=== PATIENT | male | born 1995 | race Caucasian/White ===

== ENCOUNTER 2017-06-21 00:03 | Emergency (ER) | payer OTHER ==
[~2017-06-21 00:03] MED LIST: CLIN75S PO; TYLCOD5S PO; Z.0.NO CURRENT MEDS
[2017-06-21 00:07] VITALS: BP 127/83; PULSE 76; RESP 16; TEMP 98; O2SAT 99
--- NOTE | 2017-06-21 01:13 | PD ---
HPI Chief Complaint: Complaint Time Seen by Provider: 00:42 Travel History International Travel<30 days: No Contact w/Intl Traveler<30days: No Traveled to known affect area: No History of Present Illness HPI The patient is a 22 year old male who presents to the [facility] emergency department with a history of right-sided inner thigh pain that he reports began this morning. He reports that the pain is coming and going. He reports that it is worse with walking. He reports that it became more noticeable when he was up at work at 4 PM. He denies having any associated rashes or swelling to the area. He denies having any testicle pain or swelling. He denies having any penile discharge, dysuria, hematuria, urinary urgency, or frequency. The patient incidentally also reports on review of systems that he fell intermittent muscle twitching over the last few days. He denies being on any new supplements. He does report that over the last 3 days he has been taking an [id number] allergy medicine. He is unsure the name or whether it has a decongestant and it. On review of systems, the patient denies any recent fevers, cough, congestion, neck pain, chest pain, shortness of breath, abdominal pain, vomiting, diarrhea, or neurologic symptoms. PFSH Past Medical History Narrative Medical The patient's past medical history is reportedly none. Diminished Hearing: No Immunizations Current: Yes Past Surgical History Narrative Surgical The patient's past surgical history is reportedly none. Social History Alcohol Use: No Tobacco Use: No Substance Use: No Allergies-Medications (Allergen,Severity, Reaction): Coded Allergies: No Known Allergies (Verified , 06/21/17) Reported Meds & Prescriptions Reported Meds & Active Scripts Active EC-Naprosyn (Naproxen) 500 Mg Tabdr 500 Mg PO BID PRN Reported No Current Meds (Miscellaneous Medication) Misc Review of Systems Except as stated in HPI: all other systems reviewed are Neg General / Constitutional: No: Fever Eyes: No: Visual changes HENT: No: Headaches Cardiovascular: No: Chest Pain or Discomfort Respiratory: No: Shortness of Breath Gastrointestinal: No: Abdominal Pain Genitourinary: No: Dysuria Musculoskeletal: Positive: Myalgias, Pain, Other (muscle twitching) Skin: No Rash Neurologic: No: Weakness Psychiatric: No: Depression Endocrine: No: Polydipsia Hematologic/Lymphatic: No: Easy Bruising Physical Exam Narrative General: The patient is a well-developed well-nourished male in no acute distress. Head and Neck exam: Head is normocephalic atraumatic. Eyes: EOMI, pupils are equal round and reactive to light. Nose: Midline septum with pink mucous membranes Mouth: Dentition unremarkable. Moist mucus membranes. Posterior oropharynx is not erythematous. No tonsillar hypertrophy. Uvula midline. Airway patent. Neck: No palpable lymphadenopathy. No nuchal rigidity. No thyromegaly. Cardiovascular: Regular rate and rhythm without murmurs, gallops, or rubs. Lungs: Clear to auscultation bilaterally. No wheezes, rhonchi, or rales. Abdomen: Soft, without tenderness to palpation in all 4 quadrants of the abdomen. No guarding, rebound, or rigidity. Normal bowel sounds are audible. No tenderness on palpation of McBurney's point. Negative Halstead sign. Extremities: No clubbing, cyanosis, or edema. 2+ pulses in all 4 extremities. No calf tenderness on palpation. The patient reports that the area of pain is in the right inner thigh. There the patient has no visible abnormality. Patient has no pain on palpation currently. Back: No costovertebral angle tenderness to palpation. Neurologic Exam: Grossly nonfocal. Skin Exam: No rash noted. Intact skin that is warm and dry. Data Data Last Documented VS Vital Signs Date Time Temp Pulse Resp B/P Pulse Ox O2 Delivery O2 Flow Rate FiO2 06/21/17 02:05 66 16 121/71 98 Room Air 06/21/17 00:07 98.0 Orders Urinalysis - C+S If Indicated (06/21/17 00:48) Gc And Chlamydia Pcr (06/21/17 00:48) Complete Blood Count With Diff (06/21/17 00:56) Comprehensive Metabolic Panel (06/21/17 00:56) Creatine Kinase (Cpk) (06/21/17 00:56) Westergren Sedimentation Rate (06/21/17 00:56) Magnesium (Mg) (06/21/17 00:56) Thyroid Stimulating Hormone (06/21/17 00:56) Iv Access Insert/Monitor (06/21/17 00:56) Ecg Monitoring (06/21/17 00:56) Oximetry (06/21/17 00:56) Ketorolac Inj (Toradol Inj) (06/21/17 01:45) Labs Laboratory Tests Test 06/21/17 06/21/17 01:10 01:25 Urine Color YELLOW Urine Turbidity CLEAR Urine pH 6.0 Urine Specific [place] 1.027 Urine Protein TRACE mg/dL Urine Glucose (UA) NEG mg/dL Urine Ketones NEG mg/dL Urine Occult Blood NEG Urine Nitrite NEG Urine Bilirubin NEG Urine Urobilinogen 2.0 MG/DL Urine Leukocyte Esterase NEG Urine RBC 2 /hpf Urine WBC 1 /hpf Urine Mucus FEW /lpf Microscopic Urinalysis Comment CULT NOT INDICATED Chlamydia trachomatis DNA NOT DETECTED (PCR) Neisseria gonorrhoeae DNA NOT DETECTED (PCR) White Blood Count 6.1 TH/MM3 Red Blood Count 4.39 MIL/MM3 Hemoglobin 13.2 GM/DL Hematocrit 38.3 % Mean Corpuscular Volume 87.3 FL Mean Corpuscular Hemoglobin 30.2 PG Mean Corpuscular Hemoglobin 34.5 % Concent Red Cell Distribution Width 13.5 % Platelet Count 295 TH/MM3 Mean Platelet Volume 8.0 FL Neutrophils (%) (Auto) 52.5 % Lymphocytes (%) (Auto) 32.3 % Monocytes (%) (Auto) 12.0 % Eosinophils (%) (Auto) 2.5 % Basophils (%) (Auto) 0.7 % Neutrophils # (Auto) 3.2 TH/MM3 Lymphocytes # (Auto) 2.0 TH/MM3 Monocytes # (Auto) 0.7 TH/MM3 Eosinophils # (Auto) 0.2 TH/MM3 Basophils # (Auto) 0.0 TH/MM3 CBC Comment DIFF FINAL Differential Comment Erythrocyte Sedimentation Rate 2 mm/hr Sodium Level 143 MEQ/L Potassium Level 3.9 MEQ/L Chloride Level 107 MEQ/L Carbon Dioxide Level 30.8 MEQ/L Anion Gap 5 MEQ/L Blood Urea Nitrogen 14 MG/DL Creatinine 1.13 MG/DL Estimat Glomerular Filtration 80 ML/MIN Rate Random Glucose 94 MG/DL Calcium Level 8.8 MG/DL Magnesium Level 2.1 MG/DL Total Bilirubin 1.3 MG/DL Aspartate Amino Transf 16 U/L (AST/SGOT) Alanine Aminotransferase 24 U/L (ALT/SGPT) Alkaline Phosphatase 52 U/L Total Creatine Kinase 106 U/L Total Protein 7.5 GM/DL Albumin 4.1 GM/DL Thyroid Stimulating Hormone 2.330 uIU/ML 3rd Gen [facility] Medical Decision Making Medical Screen Exam Complete: Yes Emergency Medical Condition: Yes Medical Record Reviewed: Yes Differential Diagnosis Electrolyte derangements, versus rhabdomyolysis, versus medication side effect, versus hernia, versus musculoskeletal strain, versus shingles Narrative Course During the course of the patients emergency department visit, the patients history, examination, and differential diagnosis were reviewed with the patient. The patient had IV access obtained and blood work sent for analysis. The patient was placed on a cotton sampler with oximetry and blood pressure monitoring. The patient was initially provided Toradol 15 mg IV. The patients laboratory studies were reviewed and remarkable for a white count of 6.1, hemoglobin 13.2, platelets 295 with 12 monocytes, sedimentation rate is 2 decrease in all likelihood of autoimmune process, CMP is remarkable for a GFR of 80, total bilirubin 1.3, TSH 2.33, urinalysis is unremarkable. Chlamydia and gonorrhea were not detected in his urinalysis. The patient will be discharged home with an anti-inflammatory pain medicine and close follow-up with his primary care physician for improvement. The patient is resting comfortably and feels better, is alert and in no distress. The patients results and examination findings were discussed with the patient. The repeat examination is unremarkable and benign. The history, exam, diagnostic testing, and current condition do not suggest any significant pathology to warrant further testing, continued ED treatment, admission, or surgical evaluation at this point. The vital signs have been stable. The patient does not have uncontrollable pain, intractable vomiting, or other significant symptoms. The patient's condition is stable and appropriate for discharge. The patient will pursue further outpatient evaluation with a primary care physician or other designated or consulting physician as indicated in the discharge instructions. The patient expressed understanding and was agreeable with this plan. Diagnosis Primary Impression: Thigh pain Qualified Code: M79.651 - Pain of right thigh Referrals: Primary Care Physician 1 week Patient Instructions: General Instructions, Leg Pain (ED) Med/Other Pt SpecificInfo: Prescription(s) given Scripts Naproxen DR (EC-Naprosyn)500 Mg [id number] Mg PO BID PRN (PAIN GREATER THAN 5) # 10 TAB Ref 0 Prov:Sena Samayoa MD 06/21/17 Disposition: 01 DISCHARGE HOME Condition: Stable Sena Samayoa MD Jun 21, 2017 01:13
[2017-06-21 01:30] LABS: BLOOD, URINE NEG (NEG); COMMENT (UR) CULT NOT INDICATED; CULTURE IF INDICATED CULT NOT INDICATED; GLUCOSE,URINE NEG (NEG); KETONE, URINE NEG (NEG); MUCUS URINE FEW /lpf (OCC); NITRITE,URINE NEG (NEG); URINE COLOR YELLOW (YELLW/STRAW)
[2017-06-21] MEDS ORDERED: KETOROLAC TROMETHAMINE 30 MG/ML (IVP) VIAL IV PUSH ONE (01:45)
[2017-06-21 01:52] LABS: AUTOMATED NEUTROPHIL # 3.2 TH/MM3 (1.8-7.7); BASOPHIL % 0.7 % (0.0-2.0); EOSINOPHIL # 0.2 TH/MM3 (0-0.4); EOSINOPHIL % 2.5 % (0.0-4.0); HEMATOCRIT 38.3 % (39.0-51.0); HEMO FLAGS DIFF FINAL; LYMPH % 32.3 % (9.0-44.0); MEAN CELL VOLUME 87.3 FL (80.0-100.0); MEAN CORPUSCULAR HEMOGLOBIN 30.2 PG (27.0-34.0); MEAN CORPUSCULAR HGB CONC 34.5 % (32.0-36.0); NEUT % 52.5 % (16.0-70.0); PLATELET COUNT 295 TH/MM3 (150-450); RED BLOOD COUNT 4.39 MIL/MM3 (4.50-5.90); RED CELL DISTRIBUTION WIDTH 13.5 % (11.6-17.2); WHITE BLOOD COUNT 6.1 TH/MM3 (4.0-11.0)
[2017-06-21 02:03] VITALS: RESP 20; O2SAT 100
[2017-06-21 02:05] VITALS: BP 121/71; PULSE 66; RESP 16; O2SAT 98
[2017-06-21 02:21] LABS: ALT (GPT) 24 U/L (12-78); ANION GAP 5 MEQ/L (5-15); AST (GOT) 16 U/L (15-37); BICARBONATE 30.8 MEQ/L (21.0-32.0); BLOOD UREA NITROGEN 14 MG/DL (7-18); CHLORIDE 107 MEQ/L (98-107); GLOMERULAR FILTRATION RATE 80 ML/MIN (>89); MAGNESIUM 2.1 MG/DL (1.5-2.5); POTASSIUM 3.9 MEQ/L (3.5-5.1); SODIUM (NA) 143 MEQ/L (136-145)
[2017-06-21 02:40] LABS: ALKALINE PHOSPHATASE 52 U/L (45-117); CREATINE KINASE 106 U/L (39-308); TOTAL BILIRUBIN ADULT 1.3 MG/DL (0.2-1.0)
[2017-06-21 03:06] LABS: CHLAMYDIA PCR NOT DETECTED (NOT DETECT); NEISSERIA PCR NOT DETECTED (NOT DETECT)
[2017-06-21] MEDS ORDERED: EC-N500T PO (03:23)
== END 2017-06-21 03:35 | disposition home or self-care (01) ==
LOC: NEPC 00:03
DX: M79.651 Pain in right thigh (principal)
CPT/HCPCS: 80053; 81001; 82550; 83735; 84443; 85025; 85652; 87491; 87591; 96374; 99284; J1885

== ENCOUNTER 2017-12-07 17:42 | Emergency (ER) | payer OTHER ==
[~2017-12-07] VITALS: Ht 170.2 cm; Wt 70.0 kg
[~2017-12-07 17:42] MED LIST changes: -CLIN75S PO; +NAPR-810 PO; -TYLCOD5S PO
[2017-12-07 17:47] VITALS: BP 139/77; PULSE 87; RESP 16; TEMP 98.6; O2SAT 96
--- NOTE | 2017-12-07 18:48 | PD ---
HPI Chief Complaint: Cold / Flu Symptoms Time Seen by Provider: 18:43 Travel History International Travel<30 days: No Contact w/Intl Traveler<30days: No Traveled to known affect area: No History of Present Illness HPI 22-year-old male presents for evaluation. For 3 days he's had chills, sore throat and cough. Cough is productive with yellow sputum production. Denies sick contacts. Denies any abdominal pain, nausea or vomiting, rash or recent travel. He has no other complaints at this time. [facility] Past Medical History Medical History: Denies Significant Hx Diminished Hearing: No Immunizations Current: Yes (STATES HAD IMMUNIZATIONS IN THE ) Tetanus Vaccination: < 5 Years Influenza Vaccination: No Past Surgical History Surgical History: No Previous Surgery Social History Alcohol Use: No Tobacco Use: No Substance Use: No Allergies-Medications (Allergen,Severity, Reaction): Coded Allergies: No Known Allergies (Verified Adverse Reaction, Unknown, 12/07/17) Reported Meds & Prescriptions Reported Meds & Active Scripts Active No Active Prescriptions or Reported Medications Review of Systems General / Constitutional: Positive: Chills HENT: Positive: Sore Throat, Rhinorrhea Cardiovascular: Positive: Chest Pain or Discomfort Respiratory: Positive: Cough Gastrointestinal: No: Nausea, Vomiting, Abdominal Pain Physical Exam Narrative GENERAL: Well-nourished male in no acute distress SKIN: Warm and dry. HEAD: Atraumatic. Normocephalic. EYES: Pupils equal and round. No scleral icterus. No injection or drainage. ENT: No nasal bleeding or discharge. Mucous membranes pink and moist. Mild oropharyngeal erythema without exudate. NECK: Trachea midline. No JVD. No lymphadenopathy CARDIOVASCULAR: Regular rate and rhythm. No murmur appreciated. RESPIRATORY: No accessory muscle use. Clear to auscultation. Breath sounds equal bilaterally. No crackles no wheezing or rhonchi GASTROINTESTINAL: Abdomen soft, non-tender, nondistended. Hepatic and splenic margins not palpable. Data Data Last Documented VS Vital Signs Date Time Temp Pulse Resp B/P (MAP) Pulse Ox O2 Delivery O2 Flow Rate FiO2 12/07/17 17:47 98.6 87 16 139/77 (97) 96 Orders Orders Group A Rapid Strep Screen (12/07/17 18:46) Influenzae A/B Antigen (12/07/17 18:46) Strep Culture (Group A) (12/07/17 19:00) MDM Medical Decision Making Medical Screen Exam Complete: Yes Emergency Medical Condition: Yes Medical Record Reviewed: Yes Differential Diagnosis Influenza, pharyngitis, bronchitis, pneumonia Narrative Course Rapid strep screen and influenza antigen test were performed and were negative. He appears to have a viral upper respiratory infection. He is stable for discharge. Diagnosis Primary Impression: Upper respiratory infection Additional Instructions: Stay well-hydrated and well-nourished, get plenty of rest. Return for any emergent medical conditions. Med/Other Pt SpecificInfo: No Change to Meds Scripts No Active Prescriptions or Reported Meds Disposition: DISCHARGE HOME Condition: Stable Rupert Hardin Dec 07, 2017 18:48
== END 2017-12-07 20:08 | disposition home or self-care (01) ==
LOC: PHED 17:42 → PHEFT 20:08
DX: J06.9 Acute upper respiratory infection, unspecified (principal); R05 Cough
CPT/HCPCS: 87081; 87804; 87880; 99283